=== PATIENT | female | born 1950 | race Caucasian/White ===

== ENCOUNTER 2024-12-26 06:18 | Day surgery (SDC) | payer MEDICARE, OTHER, SELFPAY ==
[2024-12-13 14:00] VITALS: BMI 23.6
[2024-12-26] VITALS (12 sets, daily range): BP systolic 111–139; BP diastolic 61–74; BMI 23.6
[2024-12-26] MEDS: HEPARIN 5000 UNITS SC (09:34)
[2024-12-26] MEDS: NORMOSOL-R/PLASMALYTE-A 1000 IV (09:41)
[2024-12-26] MEDS: SUBLIMAZE 25 MCG IV (13:43)
[2024-12-26] MEDS: ZOFRAN 4 MG IV (15:32)
== END 2024-12-26 18:05 | disposition home or self-care (01) ==
LOC: SDS 06:18
PROVIDERS: ATTENDING PHYSICIAN Obstetrics & Gynecology
DX: N81.3 Complete uterovaginal prolapse (principal); N95.8 Other specified menopausal and perimenopausal disorders; N39.3 Stress incontinence (female) (male); N36.41 Hypermobility of urethra; D25.9 Leiomyoma of uterus, unspecified; N72 Inflammatory disease of cervix uteri; N83.8 Other noninflammatory disorders of ovary, fallopian tube and broad ligament
CPT/HCPCS: 57425; 58571; 57288; 57250; 86900; 86901; 88305; C1763; C1771